=== PATIENT | male | born 1960 | race Caucasian/White ===

== ENCOUNTER 2016-06-30 16:14 | Emergency (ER) | payer BC ==
[~2016-06-30] VITALS: Ht 182.9 cm; Wt 85.0 kg
[~2016-06-30 16:14] MED LIST: FIORIC PO; METO25 PO
[2016-06-30 16:17] VITALS: BP 126/80; PULSE 53; RESP 16; TEMP 98.5; O2SAT 96
[2016-06-30] MEDS ORDERED: ATOR40TA16 PO (16:26)
[2016-06-30] MEDS ORDERED: GABA600T PO (16:26)
--- NOTE | 2016-06-30 17:18 | PD ---
HPI Chief Complaint: Edema Time Seen by Provider: 17:01 Travel History International Travel<30 days: No Contact w/Intl Traveler<30days: No Traveled to known affect area: No History of Present Illness HPI This 55-year-old male says that he has developed edema on both legs over the past week. He is somewhat uncomfortable for him. It seemed to start on the right side first and on the left. About a week and a half ago he started having considerable pain in his left knee. He did not injure himself. He has not had fever. He has to wear a brace of the knee in order to walk. He has a history of colorectal cancer. He has had surgery, chemotherapy and radiation. He just went back to work about 2 weeks ago. 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 He is not aware of any history of liver or kidney disease. He has no history of blood clots. PFSH Past Medical History Arthritis: No Asthma: No Autoimmune Disease: No Heart Rhythm Problems: No Cancer: Yes Cardiovascular Problems: No High Cholesterol: Yes Chemotherapy: Yes Chest Pain: No Congestive Heart Failure: No COPD: No Cerebrovascular Accident: No Diabetes: No Diminished Hearing: No Endocrine: No Gastrointestinal Disorders: Yes GERD: No Genitourinary: No Hiatal Hernia: No Hypertension: Yes Immune Disorder: No Kidney Stones: No Musculoskeletal: No Neurologic: No Psychiatric: No Reproductive: No Respiratory: No Migraines: No Radiation Therapy: Yes Renal Failure: No Seizures: No Sickle Cell Disease: No Sleep Apnea: No Thyroid Disease: Yes Ulcer: No Influenza Vaccination: Yes ?: Not Past Surgical History Abdominal Surgery: Yes (COLON) AICD: No Appendectomy: Yes Arteriovenous Shunt: No Cardiac Surgery: No Ear Surgery: No Endocrine Surgery: No Eye Surgery: No Genitourinary Surgery: No Gynecologic Surgery: No Insulin Pump: No Joint Replacement: No Oral Surgery: No Pacemaker: No Thoracic Surgery: No Tonsillectomy: Yes (as a child) Other Surgery: Yes Social History Alcohol Use: No (DENIES) Tobacco Use: No Substance Use: Yes Allergies-Medications (Allergen,Severity, Reaction): Coded Allergies: No Known Allergies (Verified , 06/30/16) Reported Meds & Prescriptions Reported Meds & Active Scripts Active Reported Atorvastatin (Atorvastatin Calcium) 40 Mg Tab 40 Mg PO HS Gabapentin 600 Mg Tab 600 Mg PO TID Review of Systems General / Constitutional: No: Fever, Chills Eyes: No: Diploplia, Blurred Vision HENT: No: Headaches, Vertigo Cardiovascular: Positive: Edema, No: Chest Pain or Discomfort, Palpitations Respiratory: No: Cough, Shortness of Breath Gastrointestinal: No: Abdominal Pain Genitourinary: No: Urgency, Frequency Musculoskeletal: No: Myalgias, Arthralgias Skin: No Rash, No Itching Neurologic: No: Weakness, Dizziness Hematologic/Lymphatic: No: Easy Bruising Physical Exam Narrative GENERAL: Well-developed male SKIN: Focused skin assessment warm/dry. HEAD: Atraumatic. Normocephalic. EYES: Pupils equal and round. No scleral icterus. No injection or drainage. ENT: No nasal bleeding or discharge. Mucous membranes pink and moist. NECK: Trachea midline. No JVD. CARDIOVASCULAR: Regular rate and rhythm. No murmur appreciated. RESPIRATORY: No accessory muscle use. Clear to auscultation. Breath sounds equal bilaterally. GASTROINTESTINAL: Abdomen soft, non-tender, nondistended. Hepatic and splenic margins not palpable. Multiple scars MUSCULOSKELETAL: There is bilateral pedal edema. Calves are somewhat tender to palpation bilaterally. There is no obvious fluid in the left knee. There is no gross instability. He does complain of some tenderness of the medial aspect of the left knee NEUROLOGICAL: Awake and alert. No obvious cranial nerve deficits. Motor grossly within normal limits. Normal speech. PSYCHIATRIC: Appropriate mood and affect; insight and judgment normal. Data Data Last Documented VS Vital Signs Date Time Temp Pulse Resp B/P Pulse Ox O2 Delivery O2 Flow Rate FiO2 06/30/16 17:47 56 18 131/77 98 Room Air 06/30/16 16:17 98.5 Orders Complete Blood Count With Diff (06/30/16 17:09) Comprehensive Metabolic Panel (06/30/16 17:09) Urinalysis - C+S If Indicated (06/30/16 17:09) Magnesium (Mg) (06/30/16 17:09) Knee, Complete (4vws) (06/30/16 17:09) Us Leg Venous Doppler Bilat (06/30/16 17:09) B-Type Natriuretic Peptide (06/30/16 17:09) Labs Laboratory Tests Test 06/30/16 06/30/16 16:45 17:25 White Blood Count 3.5 TH/MM3 Red Blood Count 3.43 MIL/MM3 Hemoglobin 10.2 GM/DL Hematocrit 31.7 % Mean Corpuscular Volume 92.4 FL Mean Corpuscular Hemoglobin 29.7 PG Mean Corpuscular Hemoglobin 32.2 % Concent Red Cell Distribution Width 12.7 % Platelet Count 188 TH/MM3 Mean Platelet Volume 7.9 FL Neutrophils (%) (Auto) 59.8 % Lymphocytes (%) (Auto) 25.9 % Monocytes (%) (Auto) 9.5 % Eosinophils (%) (Auto) 4.1 % Basophils (%) (Auto) 0.7 % Neutrophils # (Auto) 2.2 TH/MM3 Lymphocytes # (Auto) 0.9 TH/MM3 Monocytes # (Auto) 0.3 TH/MM3 Eosinophils # (Auto) 0.1 TH/MM3 Basophils # (Auto) 0.0 TH/MM3 CBC Comment DIFF FINAL Differential Comment Sodium Level 148 MEQ/L Potassium Level 4.0 MEQ/L Chloride Level 114 MEQ/L Carbon Dioxide Level 26.9 MEQ/L Anion Gap 7 MEQ/L Blood Urea Nitrogen 20 MG/DL Creatinine 0.94 MG/DL Estimat Glomerular Filtration 84 ML/MIN Rate Random Glucose 86 MG/DL Calcium Level 8.3 MG/DL Magnesium Level 2.3 MG/DL Total Bilirubin 0.5 MG/DL Aspartate Amino Transf 22 U/L (AST/SGOT) Alanine Aminotransferase 30 U/L (ALT/SGPT) Alkaline Phosphatase 81 U/L B-Type Natriuretic Peptide 220 PG/ML Total Protein 6.3 GM/DL Albumin 3.3 GM/DL Urine Collection Type CLEAN CATCH Urine Color YELLOW Urine Turbidity CLEAR Urine pH 5.5 Urine Specific [place] 1.025 Urine Protein NEG mg/dL Urine Glucose (UA) NEG mg/dL Urine Ketones NEG mg/dL Urine Occult Blood NEG Urine Nitrite NEG Urine Bilirubin NEG Urine Leukocyte Esterase NEG Urine WBC 0-2 /hpf Urine Squamous Epithelial 0-5 /hpf Cells Urine Amorphous Sediment FEW Microscopic Urinalysis Comment CULT NOT INDICATED Urine Collection Time 1725 MDM Medical Decision Making Medical Screen Exam Complete: Yes Emergency Medical Condition: Yes Medical Record Reviewed: Yes Differential Diagnosis Differential includes CHF, nephrosis, cirrhosis, deconditioning, dvt Narrative Course His hemoglobin is 10.2. Creatinine is 0.9. His albumin is slightly low at 3.3. X-ray of the knee is negative ultrasound of the legs is negative for DVT. I suspect this edema is multifactorial. It may be related to his recent increase in activity and excessive walking. I recommended he keep his legs elevated and will prescribe Lasix. He is to be off work for 2 days. Follow-up with his own medical doctor Diagnosis Primary Impression: Pedal edema Departure Forms: Tests/Procedures, Work Release Enter return to work date: Jul 03, 2016 Additional Instructions: Keep legs elevated Scripts Potassium Chloride ER 10 Meq Tab10 Meq PO DAILY #30 TAB Ref 0 Prov:Onel Lu MD 06/30/16 Furosemide (Lasix)20 Mg Tab20 Mg PO DAILY #30 TAB Ref 0 Prov:Onel Lu MD 06/30/16 Disposition: 01 DISCHARGE HOME Condition: Stable Onel Lu MD Jun 30, 2016 17:18
[2016-06-30 17:19] LABS: AUTOMATED NEUTROPHIL # 2.2 TH/MM3 (1.8-7.7); BASOPHIL % 0.7 % (0.0-2.0); EOSINOPHIL # 0.1 TH/MM3 (0-0.4); EOSINOPHIL % 4.1 % (0.0-4.0); HEMATOCRIT 31.7 % (39.0-51.0); HEMO FLAGS DIFF FINAL; LYMPH % 25.9 % (9.0-44.0); LYMPHOCYTE # 0.9 TH/MM3 (1.0-4.8); MEAN CELL VOLUME 92.4 FL (80.0-100.0); MEAN CORPUSCULAR HEMOGLOBIN 29.7 PG (27.0-34.0); MEAN CORPUSCULAR HGB CONC 32.2 % (32.0-36.0); MONO % 9.5 % (0.0-8.0); NEUT % 59.8 % (16.0-70.0); PLATELET COUNT 188 TH/MM3 (150-450); RED BLOOD COUNT 3.43 MIL/MM3 (4.50-5.90); RED CELL DISTRIBUTION WIDTH 12.7 % (11.6-17.2); WHITE BLOOD COUNT 3.5 TH/MM3 (4.0-11.0)
[2016-06-30 17:27] LABS: CHLORIDE 114 MEQ/L (98-107); SODIUM (NA) 148 MEQ/L (136-145)
[2016-06-30 17:31] LABS: ANION GAP 7 MEQ/L (5-15); BICARBONATE 26.9 MEQ/L (21.0-32.0); BLOOD UREA NITROGEN 20 MG/DL (7-18); MAGNESIUM 2.3 MG/DL (1.5-2.5)
[2016-06-30 17:31] LABS: BLOOD, URINE NEG (NEG); GLUCOSE,URINE NEG (NEG); KETONE, URINE NEG (NEG); NITRITE,URINE NEG (NEG); PH, URINE 5.5 (5.0-8.5)
[2016-06-30 17:32] LABS: METHOD OF COLLECTION CLEAN CATCH; URINE COLOR YELLOW (YELLW/STRAW)
[2016-06-30 17:34] LABS: ALT (GPT) 30 U/L (12-78); AST (GOT) 22 U/L (15-37); GLOMERULAR FILTRATION RATE 84 ML/MIN (>89)
[2016-06-30 17:36] LABS: TOTAL BILIRUBIN ADULT 0.5 MG/DL (0.2-1.0)
[2016-06-30 17:37] LABS: ALKALINE PHOSPHATASE 81 U/L (45-117)
[2016-06-30 17:38] LABS: CULTURE IF INDICATED CULT NOT INDICATED; SQUAMOUS EPITHELIAL CELL URINE 0-5 /hpf (0-5); WBC, URINE 0-2 /hpf (0-5)
[2016-06-30 17:39] LABS: COMMENT (UR) CULT NOT INDICATED; COMMENT2 (UR) MUCOUS PRESENT
[2016-06-30 17:47] VITALS: BP 131/77; PULSE 56; RESP 18; O2SAT 98
--- NOTE | 2016-06-30 18:37 | RADHPO ---
EXAM DATE/TIME: 06/30/2016 17:37 [facility] COMPARISON: No previous studies available for comparison. INDICATIONS : Left knee swelling and pain MEDICAL HISTORY : Carcinoma, colon. Carcinoma, rectal. SURGICAL HISTORY : None. ENCOUNTER: Initial ACUITY: 1 week PAIN SCORE: 10/10 LOCATION: Left knee FINDINGS: Four view examination of the left knee demonstrates no evidence of fracture or dislocation. Bony min eralization is normal. The articular surfaces are intact. The suprapatellar soft tissues have a nor mal configuration. CONCLUSION: 1. Mild osteoarthritis at the left knee. No acute findings. Rodolfo Garcias MD on June 30, 2016 at 18:34 Board Certified Radiologist. This report was verified electronically.
[2016-06-30] MEDS ORDERED: FURO1TAB62 PO (18:38)
[2016-06-30] MEDS ORDERED: POTA10TA2 PO (18:38)
[2016-06-30 18:39] VITALS: BP 123/73; PULSE 50; RESP 18; O2SAT 98
--- NOTE | 2016-06-30 18:44 | RADHPO ---
EXAM DATE/TIME: 06/30/2016 18:04 [facility] COMPARISON: No previous studies available for comparison. INDICATIONS : Bilateral leg swelling. MEDICAL HISTORY : Carcinoma, colon. SURGICAL HISTORY : Colon surgery. Colostomy and reversal. ENCOUNTER: Initial ACUITY: 4 - 6 days PAIN SCORE: 9/10 LOCATION: Bilateral leg. TECHNIQUE: Venous ultrasound of the left and right leg was performed from the inguinal ligament to the proximal calf. Real-time, color Doppler and spectral tracing, compression and augmentation techniques were us ed. FINDINGS: RIGHT LEG: There is normal compressibility of the deep venous system from the inguinal region to the proximal ca lf. No echogenic clot is seen in the lumen of the common femoral, femoral, popliteal, and posterior tibial veins. There is a normal response of the venous system to proximal and distal augmentation an d respiration. LEFT LEG: There is normal compressibility of the deep venous system from the inguinal region to the proximal ca lf. No echogenic clot is seen in the lumen of the common femoral, femoral, popliteal, and posterior tibial veins. There is a normal response of the venous system to proximal and distal augmentation an d respiration. CONCLUSION: Normal examination. Rodolfo Garcias MD on June 30, 2016 at 18:42 Board Certified Radiologist. This report was verified electronically.
== END 2016-06-30 18:56 | disposition home or self-care (01) ==
LOC: PHED 16:14
DX: R60.0 Localized edema (principal); C19 Malignant neoplasm of rectosigmoid junction; M25.562 Pain in left knee; I10 Essential (primary) hypertension; Z79.899 Other long term (current) drug therapy
CPT/HCPCS: 73564; 80053; 81001; 83735; 83880; 85025; 93970

== ENCOUNTER 2016-12-04 20:39 | Emergency (ER) | payer BC ==
[~2016-12-04] VITALS: Ht 182.9 cm; Wt 78.6 kg
[~2016-12-04 20:39] MED LIST changes: +ATOR40TA16 PO; -FIORIC PO; +FURO1TAB62 PO; +GABA600T PO; -METO25 PO; +POTA10TA2 PO
[2016-12-04 20:50] VITALS: BP 121/71; PULSE 93; RESP 18; TEMP 100.5; O2SAT 99
[2016-12-04 21:42] VITALS: BP 121/71; PULSE 93; RESP 18; TEMP 100.5; O2SAT 99
[2016-12-04 21:49] VITALS: BP 147/77; PULSE 85; RESP 18; O2SAT 95
[2016-12-04] MEDS ORDERED: ACETAMINOPHEN 500 MG CPLT PO ONE (22:15)
[2016-12-04] MEDS ORDERED: HYDROmorphone HCL PF 1 MG/ML VIAL IV PUSH ONE ×2 (22:15→23:45)
[2016-12-04] MEDS ORDERED: SODIUM CHLOR 0.9% 1000 ML INJ 1,000 ML IV ONE ×2 (22:15)
[2016-12-04] MEDS ORDERED: ONDANSETRON HCL 4 MG/2 ML VIAL IV PUSH ONE (22:15)
--- NOTE | 2016-12-04 22:16 | PD ---
HPI Chief Complaint: Fever Time Seen by Provider: 21:55 Travel History International Travel<30 days: No Contact w/Intl Traveler<30days: No Traveled to known affect area: No History of Present Illness HPI This 56-year-old male says he has not been feeling well for about a day. He is having a migraine headache. He's been having intermittent fever. He's had some nausea and vomiting. He has not had a sore throat or cough. He's had a fever at home. 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 He has had 2 courses of chemotherapy and has had 4 surgeries. He had a colostomy which was reversed. He is not having any abdominal pain. He has vomited several times at home PFS Past Medical History Arthritis: No Asthma: No Autoimmune Disease: No Heart Rhythm Problems: No Cancer: Yes (Colorectal) Cardiovascular Problems: No High Cholesterol: Yes Chemotherapy: Yes Chest Pain: No Congestive Heart Failure: No COPD: No Cerebrovascular Accident: No Diabetes: No Diminished Hearing: No Endocrine: No Gastrointestinal Disorders: Yes GERD: No Genitourinary: No Hiatal Hernia: No Hypertension: Yes Immune Disorder: No Kidney Stones: No Musculoskeletal: No Neurologic: No Psychiatric: No Reproductive: No Respiratory: No Migraines: No Radiation Therapy: Yes Renal Failure: No Seizures: No Sickle Cell Disease: No Sleep Apnea: No Thyroid Disease: Yes Ulcer: No Past Surgical History Abdominal Surgery: Yes (COLON) AICD: No Appendectomy: Yes Arteriovenous Shunt: No Cardiac Surgery: No Ear Surgery: No Endocrine Surgery: No Eye Surgery: No Genitourinary Surgery: No Gynecologic Surgery: No Insulin Pump: No Joint Replacement: No Oral Surgery: No Pacemaker: No Thoracic Surgery: No Tonsillectomy: Yes (as a child) Other Surgery: Yes (Colorectal disease) Social History Alcohol Use: No (DENIES) Tobacco Use: No Substance Use: No Allergies-Medications (Allergen,Severity, Reaction): Coded Allergies: No Known Allergies (Verified , 06/30/16) Reported Meds & Prescriptions Reported Meds & Active Scripts Active Potassium Chloride ER (Potassium Chloride) 10 Meq Tab 10 Meq PO DAILY Lasix (Furosemide) 20 Mg Tab 20 Mg PO DAILY Reported Atorvastatin (Atorvastatin Calcium) 40 Mg Tab 40 Mg PO HS Gabapentin 600 Mg Tab 600 Mg PO TID Review of Systems General / Constitutional: Positive: Fever, Chills Eyes: No: Diploplia, Blurred Vision HENT: No: Headaches, Vertigo Cardiovascular: No: Chest Pain or Discomfort, Palpitations Respiratory: No: Cough, Shortness of Breath Gastrointestinal: Positive: Nausea, Vomiting, Loss of Appetite, No: Abdominal Pain Genitourinary: No: Urgency, Nocturia Musculoskeletal: No: Myalgias, Arthralgias Skin: No Rash, No Itching Neurologic: No: Syncope Endocrine: No: Heat Intolerance Hematologic/Lymphatic: No: Easy Bruising Physical Exam Narrative GENERAL: Well-developed male SKIN: Focused skin assessment warm/dry. HEAD: Atraumatic. Normocephalic. EYES: Pupils equal and round. No scleral icterus. No injection or drainage. ENT: No nasal bleeding or discharge. Mucous membranes pink and moist. NECK: Trachea midline. No JVD. His neck is supple CARDIOVASCULAR: Regular rate and rhythm. No murmur appreciated. RESPIRATORY: No accessory muscle use. Clear to auscultation. Breath sounds equal bilaterally. GASTROINTESTINAL: Abdomen soft, non-tender, nondistended. Hepatic and splenic margins not palpable. MUSCULOSKELETAL: No obvious deformities. No clubbing. No cyanosis. No edema. NEUROLOGICAL: Awake and alert. No obvious cranial nerve deficits. Motor grossly within normal limits. Normal speech. PSYCHIATRIC: Appropriate mood and affect; insight and judgment normal. Data Data Last Documented VS Vital Signs Date Time Temp Pulse Resp B/P (MAP) Pulse Ox O2 Delivery O2 Flow Rate FiO2 12/04/16 21:49 85 18 147/77 (100) 95 Room Air 12/04/16 21:42 100.5 Orders Orders Complete Blood Count With Diff (12/04/16 22:03) Comprehensive Metabolic Panel (12/04/16 22:03) Blood Culture (12/04/16 22:03) Urinalysis - C+S If Indicated (12/04/16 22:03) Influenzae A/B Antigen (12/04/16 22:03) Sodium Chlor 0.9% 1000 Ml Inj (Ns 1000 M (12/04/16 22:15) Sodium Chlor 0.9% 1000 Ml Inj (Ns 1000 M (12/04/16 22:15) Ondansetron Inj (Zofran Inj) (12/04/16 22:15) Hydromorphone Pf Inj (Dilaudid Pf Inj) (12/04/16 22:15) Acetaminophen (Tylenol) (12/04/16 22:15) Urine Culture (12/04/16 22:20) Ceftriaxone Inj (Rocephin Inj) (12/04/16 23:30) Labs Laboratory Tests Test 12/04/16 22:20 White Blood Count 13.2 TH/MM3 Red Blood Count 4.38 MIL/MM3 Hemoglobin 13.5 GM/DL Hematocrit 39.3 % Mean Corpuscular Volume 89.6 FL Mean Corpuscular Hemoglobin 30.9 PG Mean Corpuscular Hemoglobin Concent 34.5 % Red Cell Distribution Width 14.0 % Platelet Count 143 TH/MM3 Mean Platelet Volume 7.7 FL Neutrophils (%) (Auto) 85.3 % Lymphocytes (%) (Auto) 4.6 % Monocytes (%) (Auto) 9.1 % Eosinophils (%) (Auto) 0.0 % Basophils (%) (Auto) 1.0 % Neutrophils # (Auto) 11.3 TH/MM3 Lymphocytes # (Auto) 0.6 TH/MM3 Monocytes # (Auto) 1.2 TH/MM3 Eosinophils # (Auto) 0.0 TH/MM3 Basophils # (Auto) 0.1 TH/MM3 CBC Comment DIFF FINAL Differential Comment Urine Color YELLOW Urine Turbidity CLOUDY Urine pH 6.0 Urine Specific [place] 1.025 Urine Protein 100 mg/dL Urine Glucose (UA) NEG mg/dL Urine Ketones 15 mg/dL Urine Occult Blood SMALL Urine Nitrite POS Urine Bilirubin NEG Urine Leukocyte Esterase MOD Urine RBC 15-19 /hpf Urine WBC INNUM /hpf Urine Squamous Epithelial Cells 0-5 /hpf Urine Bacteria MANY /hpf Microscopic Urinalysis Comment CULTURE INDICATED Blood Urea Nitrogen 19 MG/DL Creatinine 1.20 MG/DL Random Glucose 131 MG/DL Total Protein 8.1 GM/DL Albumin 3.6 GM/DL Calcium Level 8.9 MG/DL Alkaline Phosphatase 89 U/L Aspartate Amino Transf (AST/SGOT) 21 U/L Alanine Aminotransferase (ALT/SGPT) 17 U/L Total Bilirubin 1.1 MG/DL Sodium Level 133 MEQ/L Potassium Level 3.4 MEQ/L Chloride Level 98 MEQ/L Carbon Dioxide Level 25.4 MEQ/L Anion Gap 10 MEQ/L Estimat Glomerular Filtration Rate 63 ML/MIN [facility] Medical Decision Making Medical Screen Exam Complete: Yes Emergency Medical Condition: Yes Medical Record Reviewed: Yes Differential Diagnosis Differential includes viral syndrome, influenza, UTI Narrative Course Hemoglobin is 13. White count is 13. Urinalysis does show innumerable white cells consistent with urinary tract infection. He will be released with prescriptions for Bactrim. Lortab and Zofran Diagnosis Primary Impression: Urinary tract infection Scripts Sulfamethoxazole-Trimethoprim (Bactrim DS) 800-160 Mg Tab 1 TAB PO BID for Infection, #20 TAB 0 Refills Prov: Onel Lu MD 12/04/16 Oxycodone-Acetaminophen (Percocet) 7.5-325 mg Tab 1 TAB PO Q4H Y for PAIN, #20 TAB 0 Refills Prov: Onel Lu MD 12/04/16 Ondansetron Odt (Zofran Odt) 4 Mg Tab 4 MG SL Q6HR Y for Nausea/Vomiting, #10 TAB 0 Refills Prov: Onel Lu MD 12/04/16 Disposition: 01 DISCHARGE HOME Condition: Stable Onel Lu MD Dec 04, 2016 22:16
[2016-12-04 22:33] LABS: AUTOMATED NEUTROPHIL # 11.3 TH/MM3 (1.8-7.7); BASOPHIL # 0.1 TH/MM3 (0-0.2); HEMATOCRIT 39.3 % (39.0-51.0); LYMPH % 4.6 % (9.0-44.0); LYMPHOCYTE # 0.6 TH/MM3 (1.0-4.8); MEAN CELL VOLUME 89.6 FL (80.0-100.0); MEAN CORPUSCULAR HEMOGLOBIN 30.9 PG (27.0-34.0); MEAN CORPUSCULAR HGB CONC 34.5 % (32.0-36.0); MONO % 9.1 % (0.0-8.0); NEUT % 85.3 % (16.0-70.0); PLATELET COUNT 143 TH/MM3 (150-450); RED BLOOD COUNT 4.38 MIL/MM3 (4.50-5.90); WHITE BLOOD COUNT 13.2 TH/MM3 (4.0-11.0)
[2016-12-04 22:38] LABS: BLOOD, URINE SMALL (NEG); GLUCOSE,URINE NEG (NEG); HEMO FLAGS DIFF FINAL; KETONE, URINE 15 mg/dL (NEG); NITRITE,URINE POS (NEG)
[2016-12-04 22:41] LABS: CHLORIDE 98 MEQ/L (98-107); POTASSIUM 3.4 MEQ/L (3.5-5.1); SODIUM (NA) 133 MEQ/L (136-145); URINE COLOR YELLOW (YELLW/STRAW)
[2016-12-04 22:42] LABS: BACTERIA, URINE MANY /hpf; COMMENT (UR) CULTURE INDICATED; CULTURE IF INDICATED CULTURE INDICATED; RBC, URINE 15-19 /hpf (0-3); SQUAMOUS EPITHELIAL CELL URINE 0-5 /hpf (0-5); WBC, URINE INNUM /hpf (0-5)
[2016-12-04 22:45] LABS: ANION GAP 10 MEQ/L (5-15); BICARBONATE 25.4 MEQ/L (21.0-32.0); BLOOD UREA NITROGEN 19 MG/DL (7-18)
[2016-12-04 22:48] LABS: ALT (GPT) 17 U/L (12-78); AST (GOT) 21 U/L (15-37); GLOMERULAR FILTRATION RATE 63 ML/MIN (>89)
[2016-12-04 22:49] LABS: TOTAL BILIRUBIN ADULT 1.1 MG/DL (0.2-1.0)
[2016-12-04 22:51] LABS: ALKALINE PHOSPHATASE 89 U/L (45-117)
[2016-12-04 23:20] VITALS: BP 129/72; PULSE 72; RESP 18; TEMP 99.4; O2SAT 97
[2016-12-04] MEDS ORDERED: ZOFR4TAB3 SL (23:22)
[2016-12-04] MEDS ORDERED: PERC7.5T13 PO (23:22)
[2016-12-04] MEDS ORDERED: BACT800T5 PO (23:22)
[2016-12-04] MEDS ORDERED: cefTRIAXone INJ 1,000 MG in SODIUM CHLORIDE 0.9% INJ 100 ML IV ONE (23:30)
[2016-12-05 00:45] VITALS: BP 113/71
[2016-12-05 00:51] VITALS: RESP 16
[2016-12-06] MEDS ORDERED: LOPE-1 PO (12:24)
== END 2016-12-05 01:00 | disposition home or self-care (01) ==
LOC: PHED 20:39
DX: N39.0 Urinary tract infection, site not specified (principal); R51 Headache; R50.9 Fever, unspecified; R11.2 Nausea with vomiting, unspecified; B96.20 Unspecified Escherichia coli [E. coli] as the cause of diseases classified elsewhere; I10 Essential (primary) hypertension; E07.9 Disorder of thyroid, unspecified; E78.00 Pure hypercholesterolemia, unspecified; Z85.038 Personal history of other malignant neoplasm of large intestine; Z87.19 Personal history of other diseases of the digestive system
CPT/HCPCS: 80053; 81001; 85025; 87040; 87077; 87086; 87186; 87205; 87804; 96361; 96365; 96375; 96376; 99284; J0696; J1170; J2405; J7030

== ENCOUNTER 2016-12-05 17:09 | Inpatient (IN) | payer BC ==
[~2016-12-05] VITALS: Ht 182.9 cm; Wt 80.1 kg
[~2016-12-05 17:09] MED LIST changes: +BACT800T5 PO; -FURO1TAB62 PO; +PERC7.5T13 PO; -POTA10TA2 PO; +ZOFR4TAB3 SL
[2016-12-05 17:11] VITALS: BP 118/68; PULSE 87; RESP 20; TEMP 100.5; O2SAT 94
[2016-12-05] MEDS ORDERED: PIPERACIL-TAZO 3.375 GM PREMIX 50 ML IV ONE (17:30)
[2016-12-05] MEDS ORDERED: ONDANSETRON HCL 4 MG/2 ML VIAL IV PUSH ONE (17:30)
--- NOTE | 2016-12-05 17:36 | PD ---
HPI Chief Complaint: Abnormal Results Time Seen by Provider: 17:18 Travel History International Travel<30 days: No Contact w/Intl Traveler<30days: No Traveled to known affect area: No History of Present Illness HPI 56yo M with PMH of rectal CA s/p chemo, cancer free for 1 year was called back today because of positive blood cultures. Pt has not been feeling well for 2 days and was seen at [facility] yesterday and diagnosed with UTI and discharge with bactrim. Pt states that he has been vomiting and still feels nauseous, last vomit was this morning. Also has been having fever, and last took ibuprofen at 2:30pm. Pt denies any chest pain, sob, abdominal pain, dysuria, focal weakness or numbness. Pt's urine culture and anareobic blood culture grew gram negative rosaura. PFSH Past Medical History Arthritis: No Asthma: No Autoimmune Disease: No Heart Rhythm Problems: No Cancer: Yes (Colorectal) Cardiovascular Problems: No High Cholesterol: Yes Chemotherapy: Yes Chest Pain: No Congestive Heart Failure: No COPD: No Cerebrovascular Accident: No Diabetes: No Diminished Hearing: No Endocrine: No Gastrointestinal Disorders: Yes GERD: No Genitourinary: No Hiatal Hernia: No Hypertension: Yes Immune Disorder: No Kidney Stones: No Musculoskeletal: No Neurologic: No Psychiatric: No Reproductive: No Respiratory: No Migraines: No Radiation Therapy: Yes Renal Failure: No Seizures: No Sickle Cell Disease: No Sleep Apnea: No Thyroid Disease: Yes Ulcer: No Past Surgical History Abdominal Surgery: Yes (COLON) AICD: No Appendectomy: Yes Arteriovenous Shunt: No Cardiac Surgery: No Ear Surgery: No Endocrine Surgery: No Eye Surgery: No Genitourinary Surgery: No Gynecologic Surgery: No Insulin Pump: No Joint Replacement: No Oral Surgery: No Pacemaker: No Thoracic Surgery: No Tonsillectomy: Yes (as a child) Other Surgery: Yes (Colorectal disease) Social History Alcohol Use: No (DENIES) Tobacco Use: No Substance Use: No Allergies-Medications (Allergen,Severity, Reaction): Coded Allergies: No Known Allergies (Verified , 12/05/16) Reported Meds & Prescriptions Reported Meds & Active Scripts Active Bactrim DS (Sulfamethoxazole-Trimethoprim) 800-160 Mg Tab 1 Tab PO BID Percocet (Oxycodone-Acetaminophen) 7.5-325 mg Tab 1 Tab PO Q4H PRN Zofran Odt (Ondansetron Odt) 4 Mg Tab 4 Mg SL Q6HR PRN Reported Atorvastatin (Atorvastatin Calcium) 40 Mg Tab 40 Mg PO HS Gabapentin 600 Mg Tab 600 Mg PO BID Review of Systems Except as stated in HPI: all other systems reviewed are Neg Physical Exam Narrative GENERAL: 56yo M in mild distress. SKIN: Diaphoretic. HEAD: Atraumatic. Normocephalic. EYES: Pupils equal and round. No scleral icterus. No injection or drainage. ENT: No nasal bleeding or discharge. Mucous membranes pink and moist. NECK: Trachea midline. No JVD. CARDIOVASCULAR: Regular rate and rhythm. No murmur appreciated. RESPIRATORY: No accessory muscle use. Clear to auscultation. Breath sounds equal bilaterally. GASTROINTESTINAL: Abdomen soft, non-tender, nondistended. No rebound tenderness or guarding. MUSCULOSKELETAL: No obvious deformities. No clubbing. No cyanosis. No edema. NEUROLOGICAL: Awake and alert. No obvious cranial nerve deficits. Motor grossly within normal limits. Normal speech. PSYCHIATRIC: Appropriate mood and affect; insight and judgment normal. Data Data Last Documented VS Vital Signs Date Time Temp Pulse Resp B/P (MAP) Pulse Ox O2 Delivery O2 Flow Rate FiO2 12/05/16 18:45 74 18 124/60 (81) 98 Room Air 12/05/16 17:11 100.5 Orders Orders Blood Culture (12/05/16 17:29) Complete Blood Count With Diff (12/05/16 17:29) Basic Metabolic Panel (Bmp) (12/05/16 17:29) Lactic Acid Sepsis Protocol (12/05/16 17:29) Prothrombin Time / Inr (Pt) (12/05/16 17:29) Act Partial Throm Time (Ptt) (12/05/16 17:29) Piperacil-Tazo 3.375 Gm Premix (Zosyn 3. (12/05/16 17:30) Ondansetron Inj (Zofran Inj) (12/05/16 17:30) Acetaminophen (Tylenol) (12/05/16 17:45) Potassium Chloride (Kcl) (12/05/16 19:00) Admit Order (Ed Use Only) (12/05/16 19:20) Labs Laboratory Tests Test 12/05/16 17:50 White Blood Count 11.7 TH/MM3 Red Blood Count 3.69 MIL/MM3 Hemoglobin 11.7 GM/DL Hematocrit 34.4 % Mean Corpuscular Volume 93.3 FL Mean Corpuscular Hemoglobin 31.6 PG Mean Corpuscular Hemoglobin Concent 33.9 % Red Cell Distribution Width 14.4 % Platelet Count 131 TH/MM3 Mean Platelet Volume 8.1 FL Neutrophils (%) (Auto) 82.8 % Lymphocytes (%) (Auto) 6.8 % Monocytes (%) (Auto) 9.7 % Eosinophils (%) (Auto) 0.4 % Basophils (%) (Auto) 0.3 % Neutrophils # (Auto) 9.8 TH/MM3 Lymphocytes # (Auto) 0.8 TH/MM3 Monocytes # (Auto) 1.1 TH/MM3 Eosinophils # (Auto) 0.0 TH/MM3 Basophils # (Auto) 0.0 TH/MM3 CBC Comment AUTO DIFF Prothrombin Time 11.0 SEC Prothromb Time International Ratio 1.0 RATIO Activated Partial Thromboplast Time 32.0 SEC Blood Urea Nitrogen 16 MG/DL Creatinine 0.99 MG/DL Random Glucose 106 MG/DL Calcium Level 8.5 MG/DL Sodium Level 137 MEQ/L Potassium Level 3.3 MEQ/L Chloride Level 103 MEQ/L Carbon Dioxide Level 24.1 MEQ/L Anion Gap 10 MEQ/L Estimat Glomerular Filtration Rate 79 ML/MIN Lactic Acid Level 1.8 mmol/L MDM Medical Decision Making Medical Screen Exam Complete: Yes Emergency Medical Condition: Yes Differential Diagnosis Bacteremic vs. sepsis Narrative Course 56yo M was called back because blood culture grew gram negative rosaura. Pt is still not feeling well, febrile, diaphoretic, nauseous and vomiting. Will redraw blood cultures, obtain basic labs for sepsis work up and give IV zosyn. Pt initially febrile at 100.5F and given acetaminophen. Labs reviewed, mild leukocytosis at 11.7. Thrombocytopenic at 131. Lactic acid normal at 1.8. K: 3.3, replaced orally. Discussed with Dr. Templeton and accepted to her service for bacteremia. Diagnosis Primary Impression: Bacteremia Admitting Information Admitting Physician Requests: Admit Kymberly Bernard Dec 05, 2016 17:36
[2016-12-05] MEDS ORDERED: ACETAMINOPHEN 325 MG TAB PO ONE (17:45)
[2016-12-05 18:20] LABS: AUTOMATED NEUTROPHIL # 9.8 TH/MM3 (1.8-7.7); BASOPHIL % 0.3 % (0.0-2.0); EOSINOPHIL % 0.4 % (0.0-4.0); HEMATOCRIT 34.4 % (39.0-51.0); LYMPH % 6.8 % (9.0-44.0); LYMPHOCYTE # 0.8 TH/MM3 (1.0-4.8); MEAN CELL VOLUME 93.3 FL (80.0-100.0); MEAN CORPUSCULAR HEMOGLOBIN 31.6 PG (27.0-34.0); MEAN CORPUSCULAR HGB CONC 33.9 % (32.0-36.0); MONO % 9.7 % (0.0-8.0); NEUT % 82.8 % (16.0-70.0); PLATELET COUNT 131 TH/MM3 (150-450); RED BLOOD COUNT 3.69 MIL/MM3 (4.50-5.90); RED CELL DISTRIBUTION WIDTH 14.4 % (11.6-17.2); WHITE BLOOD COUNT 11.7 TH/MM3 (4.0-11.0)
[2016-12-05 18:24] LABS: HEMO FLAGS AUTO DIFF
[2016-12-05 18:45] VITALS: BP 124/60; PULSE 74; RESP 18; O2SAT 98
[2016-12-05 18:50] LABS: POTASSIUM 3.3 MEQ/L (3.5-5.1)
[2016-12-05 18:53] LABS: BICARBONATE 24.1 MEQ/L (21.0-32.0)
[2016-12-05] MEDS ORDERED: POTASSIUM CHLORIDE 20 MEQ CONTROLLED RELEASE TAB PO ONE (19:00)
[2016-12-05 19:36] LABS: SCAN/DIFF AUTO DIFF CONFIRMED
[2016-12-05 20:20] VITALS: TEMP 98.8
[2016-12-05] MEDS ORDERED: NALOXONE HCL 0.4 MG/ML AMP IV PUSH PRN (20:30)
[2016-12-05] MEDS ORDERED: SODIUM CHLORIDE 0.9% FLUSH 10 ML FLUSH IV FLUSH PRN (20:30)
[2016-12-05 20:51] VITALS: BP 96/56; PULSE 66; RESP 16; O2SAT 96
[2016-12-05] MEDS: SODIUM CHLORIDE 0.9% FLUSH 10 ML FLUSH IV FLUSH SCH (21:14)
[2016-12-05] MEDS ORDERED: IBUPROFEN 800 MG TAB PO SCH (23:48)
[2016-12-06] VITALS (8 sets, daily range): BP systolic 101–124; BP diastolic 67–81; PULSE 54–68; RESP 16–18; TEMP 96–99.5; O2SAT 95–98
[2016-12-06] MEDS: PIPERACIL-TAZO 4.5 GM PREMIX 100 ML IV SCH ×3 (06:00→13:02)
[2016-12-06 07:08] LABS: AUTOMATED NEUTROPHIL # 6.8 TH/MM3 (1.8-7.7); BASOPHIL % 0.3 % (0.0-2.0); EOSINOPHIL # 0.1 TH/MM3 (0-0.4); EOSINOPHIL % 1.3 % (0.0-4.0); HEMATOCRIT 34.3 % (39.0-51.0); LYMPH % 9.5 % (9.0-44.0); LYMPHOCYTE # 0.8 TH/MM3 (1.0-4.8); MEAN CELL VOLUME 94.2 FL (80.0-100.0); MEAN CORPUSCULAR HEMOGLOBIN 31.1 PG (27.0-34.0); MONO % 10.3 % (0.0-8.0); NEUT % 78.6 % (16.0-70.0); PLATELET COUNT 126 TH/MM3 (150-450); RED BLOOD COUNT 3.65 MIL/MM3 (4.50-5.90); RED CELL DISTRIBUTION WIDTH 14.3 % (11.6-17.2); WHITE BLOOD COUNT 8.6 TH/MM3 (4.0-11.0)
[2016-12-06 07:14] LABS: POTASSIUM 4.1 MEQ/L (3.5-5.1)
[2016-12-06 07:17] LABS: HEMO FLAGS DIFF FINAL
[2016-12-06 07:20] LABS: BICARBONATE 26.8 MEQ/L (21.0-32.0)
[2016-12-06] MEDS: SODIUM CHLORIDE 0.9% FLUSH 10 ML FLUSH IV FLUSH SCH ×2 (08:00→20:42)
[2016-12-06] MEDS ORDERED: LOPE-1 PO (12:24)
[2016-12-06] MEDS ORDERED: LOPERAMIDE HCL 2 MG CAP PO PRN ×2 (13:15→14:15)
[2016-12-06] MEDS ORDERED: IBUPROFEN 600 MG TAB PO ONE (13:30)
[2016-12-06] MEDS ORDERED: ALUMINUM/MAGNESIUM/SIMETH 30 ML CUP PO PRN (14:15)
[2016-12-06] MEDS ORDERED: ACETAMINOPHEN 325 MG TAB PO PRN (14:15)
[2016-12-06] MEDS ORDERED: ONDANSETRON HCL 4 MG/2 ML VIAL IV PRN (14:15)
[2016-12-06] MEDS ORDERED: TEMAZEPAM 15 MG CAP PO PRN (14:15)
[2016-12-06] MEDS: ACETAMINOPHEN/HYDROcodone 325 MG/5 MG TAB PO PRN (15:28)
[2016-12-06] MEDS ORDERED: SODIUM CHLOR 0.9% 1000 ML INJ 1,000 ML IV SCH (16:00)
--- NOTE | 2016-12-06 17:08 | HHI.HP ---
HPI Service [facility] Primary Care Physician Khari Jama MD Admission Diagnosis Bacteremia Diagnoses: (1) Bacteremia Diagnosis: Principal (2) Urinary tract infection Diagnosis: Principal Chief Complaint: Patient was called and because of positive blood cultures Travel History International Travel<30 Days: No Contact w/Intl Traveler <30 Da: No Traveled to Known Affected Are: No History of Present Illness Written by Jr Nobles, acting as scribe for Dr. Canales on 12/06/16 at 16:57. 56 year-old male with known history of rectal cancer, hyperlipidemia who presented to the hospital at the request of the ER because of positive blood cultures. Patient states that his symptoms started approximately 3 weeks ago with urinary frequency with decreased urinary output. He thought maybe his prostate so he was planning on arranging an appointment with a urologist. However Friday he started not feeling well with generalized weakness, he started developing chills where he got into a swimming pool and he got out because he was severely cold. He went to bed at 7 PM that day and did not feel well he had fever which he took Tylenol, he had severe headache. Started developing some nausea vomiting between 9 PM and 9:30 that day. Patient got the next day and he did go over and visit his parents but still did not feel well. He did go to the emergency department for evaluation. Patient was evaluated and found to have urinary tract infection was started on Bactrim. Patient went home and took medication approximately 1 dose. Patient was called by the hospital because certainly his blood cultures that were taken in emergency department did become positive with gram-negative rosaura. Patient return the hospital and he has been started on antibiotic to include Zosyn. Patient indicates that he had does have history of bacteremia secondary to urinary tract infection 10-12 years ago.. He does not indicate how he had the source before. Patient does have low-grade fever this time. We'll need to await further cultures for final delineation for the patient Review of Systems Constitutional: COMPLAINS OF: Fever, Chills Genitourinary: COMPLAINS OF: Urinary frequency Neurologic: COMPLAINS OF: Headache Except as stated in HPI: all other systems reviewed are Neg Past Family Social History Past Medical History Hyperlipidemia Chemotherapy-induced neuropathy History of colorectal cancer Past Surgical History Colostomy with reversal Appendectomy Reported Medications Reported Meds & Active Scripts Active Bactrim DS (Sulfamethoxazole-Trimethoprim) 800-160 Mg Tab 1 Tab PO BID Percocet (Oxycodone-Acetaminophen) 7.5-325 mg Tab 1 Tab PO Q4H PRN Zofran Odt (Ondansetron Odt) 4 Mg Tab 4 Mg SL Q6HR PRN Reported Imodium A-D (Loperamide HCl) 2 Mg Capsule 1-2 Tab PO Q4HR PRN One capsule after each loose stool. Not to exceed 8 tablets per day. Atorvastatin (Atorvastatin Calcium) 40 Mg Tab 40 Mg PO HS Gabapentin 600 Mg Tab 600 Mg PO BID Allergies: Coded Allergies: No Known Allergies (Verified , 12/05/16) Family History Reviewed is significant for father alive at age 80 with coronary artery disease requiring bypass surgery, other alive at 78 years old in good health. Social History Patient quit smoking 1 year ago, prior to that he smoked a half pack a cigarettes a day since he was 13 years old. Denies any alcohol or illicit drugs Physical Exam Vital Signs Vital Signs Date Time Temp Pulse Resp B/P (MAP) Pulse Ox O2 Delivery O2 Flow Rate FiO2 12/06/16 16:00 98.8 68 16 115/71 (86) 97 12/06/16 14:37 16 12/06/16 13:40 99.5 12/06/16 12:00 97.3 65 16 104/68 (80) 95 12/06/16 08:00 96.0 54 16 101/67 (78) 97 12/06/16 04:56 55 12/06/16 04:00 98.9 62 18 124/78 (93) 98 12/06/16 00:00 99.1 64 18 117/74 (88) 96 12/05/16 20:51 66 16 96/56 (69) 96 Room Air 12/05/16 20:20 98.8 12/05/16 18:45 74 18 124/60 (81) 98 Room Air 12/05/16 17:30 Room Air 12/05/16 17:11 100.5 87 20 118/68 (85) 94 Physical Exam GENERAL: Well-developed, well-nourished, in no acute distress. alert and orientated HEENT: Head is normocephalic without any lesions or masses noted. Facial features are symmetric. Eyes: Pupils equal round reactive to light. Extraocular muscles are intact. Conjunctivae were clear. Oropharyngeal: Pharynx without any erythema edema. Tongue is midline without deviation. Buccal mucosa is moist without any masses or lesions NECK: Supple without any masses. Trachea midline no deviation. No JVD, no bruits are appreciated CARDIAC: Regular rhythm, regular rate. S1/S2 are heard. No murmurs gallops or rubs. LUNGS: Clear to auscultation bilaterally. No wheeze, rhonchi or rales. No use of accessory muscles on inspiration or expiration. ABDOMEN: Soft, nontender. Nondistended. Bowel sounds heard in all 4 quadrants. No organomegaly or masses. Negative rebound, negative guarding EXTREMITIES: No edema, pulses are equal bilaterally. No cyanosis or clubbing NEUROLOGY: Mood and affect appear appropriate. Cranial nerves II through XII grossly intact. Muscle strength 5/5 in upper and lower extremities bilaterally. Deep tendon reflexes are 2+ in upper and lower extremities bilaterally. Laboratory Laboratory Tests Test 12/05/16 17:50 12/06/16 05:25 White Blood Count 11.7 8.6 Red Blood Count 3.69 3.65 Hemoglobin 11.7 11.4 Hematocrit 34.4 34.3 Mean Corpuscular Volume 93.3 94.2 Mean Corpuscular Hemoglobin 31.6 31.1 Mean Corpuscular Hemoglobin Concent 33.9 33.0 Red Cell Distribution Width 14.4 14.3 Platelet Count 131 126 Mean Platelet Volume 8.1 8.7 Neutrophils (%) (Auto) 82.8 78.6 Lymphocytes (%) (Auto) 6.8 9.5 Monocytes (%) (Auto) 9.7 10.3 Eosinophils (%) (Auto) 0.4 1.3 Basophils (%) (Auto) 0.3 0.3 Neutrophils # (Auto) 9.8 6.8 Lymphocytes # (Auto) 0.8 0.8 Monocytes # (Auto) 1.1 0.9 Eosinophils # (Auto) 0.0 0.1 Basophils # (Auto) 0.0 0.0 CBC Comment AUTO DIFF DIFF FINAL Differential Comment AUTO DIFF CONFIRMED Prothrombin Time 11.0 Prothromb Time International Ratio 1.0 Activated Partial Thromboplast Time 32.0 Blood Urea Nitrogen 16 20 Creatinine 0.99 1.10 Random Glucose 106 96 Calcium Level 8.5 8.7 Sodium Level 137 137 Potassium Level 3.3 4.1 Chloride Level 103 102 Carbon Dioxide Level 24.1 26.8 Anion Gap 10 8 Estimat Glomerular Filtration Rate 79 70 Lactic Acid Level 1.8 Date/Time Source Procedure Growth Status 12/05/16 17:05 Blood Peripheral Aerobic Blood Culture - Preliminary NO GROWTH IN 1 DAY Resulted 12/05/16 17:05 Blood Peripheral Anaerobic Blood Culture - Preliminary NO GROWTH IN 1 DAY Resulted Result Diagram: 12/06/1652412/06/16524 Caprini VTE Risk Assessment Caprini VTE Risk Assessment: Mod/High Risk (score >= 2) Caprini Risk Assessment Model Point Value = 1 Point Value = 2 Point Value = 3 Point Value = 5 Age 41-60 Minor surgery BMI > 25 kg/m2 Swollen legs Varicose veins or History of unexplained or recurrent spontaneous Oral contraceptives or hormone replacement Sepsis (< 1 month) Serious lung disease, including pneumonia (< 1 month) Abnormal pulmonary function Acute myocardial infarction Congestive heart failure (< 1 month) History of inflammatory bowel disease Medical patient at bed rest Age 61-74 Arthroscopic surgery Major open surgery (> 45 min) Laparoscopic surgery (> 45 min) Malignancy Confined to bed (> 72 hours) Immobilizing plaster cast Central venous access Age >= 75 History of VTE Family history of VTE Factor V Leiden Prothrombin [id number] Lupus anticoagulant Anticardiolipin antibodies Elevated serum homocysteine Heparin-induced thrombocytopenia Other congenital or acquired thrombophilia Stroke (< 1 month) Elective arthroplasty Hip, pelvis, or leg fracture Acute spinal cord injury (< 1 month) Prophylaxis Regimen Total Risk Factor Score Risk Level Prophylaxis Regimen 0-1 Low Early ambulation 2 Moderate Order ONE of the following: *Sequential Compression Device (SCD) *Heparin 5000 units SQ BID 3-4 Higher Order ONE of the following medications: *Heparin 5000 units SQ TID *Enoxaparin/Lovenox 40 mg SQ daily (WT < 150 kg, CrCl > 30 mL/min) *Enoxaparin/Lovenox 30 mg SQ daily (WT < 150 kg, CrCl > 10-29 mL/min) *Enoxaparin/Lovenox 30 mg SQ BID (WT < 150 kg, CrCl > 30 mL/min) AND/OR *Sequential Compression Device (SCD) 5 or more Highest Order ONE of the following medications: *Heparin 5000 units SQ TID (Preferred with Epidurals) *Enoxaparin/Lovenox 40 mg SQ daily (WT < 150 kg, CrCl > 30 mL/min) *Enoxaparin/Lovenox 30 mg SQ daily (WT < 150 kg, CrCl > 10-29 mL/min) *Enoxaparin/Lovenox 30 mg SQ BID (WT < 150 kg, CrCl > 30 mL/min) AND *Sequential Compression Device (SCD) Assessment and Plan Assessment and Plan Bacteremia likely secondary to urinary tract infection, possible prostatitis Patient was continued on Zosyn. Urine culture does show Escherichia coli pansensitive Awaiting blood culture final sensitivities Repeat blood cultures are negative for 1 day Discussed case with infectious disease who recommended if blood cultures/ urine culture are same bacteria, consider Cipro 500 mg twice daily for 4 weeks recommend follow-up in outpatient setting with urology Azotemia, mild Could be secondary to underlying infection versus chronic diarrhea Continue IV fluids Monitor renal function History of colorectal cancer Patient with intermittent chronic diarrhea Resume Imodium DVT prevention Sequential compression devices This note was transcribed by stevie Nobles. I, Dr. Jimenez French personally performed the history, physical exam, and medical decision making; and confirmed the accuracy of the information in the transcribed note. Authenticated by Dr. Jimenez French on 12/06/16 at 17:12. Physician Certification 2 Midnight Certification Type: Admission for Inpatient Services Order for Inpatient Services The services are ordered in accordance with Medicare regulations or non- Medicare payer requirements, as applicable. In the case of services not specified as inpatient-only, they are appropriately provided as inpatient services in accordance with the 2-midnight benchmark. Estimated LOS (days): 2 days is the estimated time the patient will need to remain in the hospital, assuming treatment plan goals are met and no additional complications. Post-Hospital Plan: Jr Hays Dec 06, 2016 17:08 Jimenez Tobar MD Dec 06, 2016 17:58
[2016-12-06] MEDS: CIPROFLOXACIN 500 MG TAB PO SCH (20:41)
[2016-12-06] MEDS: GABAPENTIN 300 MG CAP PO SCH (20:42)
[2016-12-06] MEDS ORDERED: ATORVASTATIN 40 MG TAB PO SCH (21:00)
[2016-12-07] MEDS: ACETAMINOPHEN/HYDROcodone 325 MG/5 MG TAB PO PRN ×2 (00:56→08:21)
[2016-12-07 02:06] VITALS: BP 151/96; PULSE 66; RESP 16; TEMP 97.6; O2SAT 98
[2016-12-07 04:16] VITALS: RESP 18
[2016-12-07 07:09] LABS: AUTOMATED NEUTROPHIL # 5.3 TH/MM3 (1.8-7.7); BASOPHIL % 0.2 % (0.0-2.0); EOSINOPHIL # 0.1 TH/MM3 (0-0.4); EOSINOPHIL % 1.4 % (0.0-4.0); HEMATOCRIT 35.2 % (39.0-51.0); HEMO FLAGS DIFF FINAL; LYMPH % 13.7 % (9.0-44.0); MEAN CELL VOLUME 92.6 FL (80.0-100.0); MEAN CORPUSCULAR HEMOGLOBIN 31.2 PG (27.0-34.0); MEAN CORPUSCULAR HGB CONC 33.7 % (32.0-36.0); MONO % 10.4 % (0.0-8.0); NEUT % 74.3 % (16.0-70.0); PLATELET COUNT 154 TH/MM3 (150-450); RED CELL DISTRIBUTION WIDTH 14.5 % (11.6-17.2); WHITE BLOOD COUNT 7.1 TH/MM3 (4.0-11.0)
[2016-12-07 07:17] LABS: CHLORIDE 103 MEQ/L (98-107); SODIUM (NA) 138 MEQ/L (136-145)
[2016-12-07 07:31] LABS: ALT (GPT) 29 U/L (12-78); ANION GAP 6 MEQ/L (5-15); AST (GOT) 26 U/L (15-37); BICARBONATE 28.7 MEQ/L (21.0-32.0); BLOOD UREA NITROGEN 12 MG/DL (7-18); GLOMERULAR FILTRATION RATE 79 ML/MIN (>89)
[2016-12-07 08:00] VITALS: BP 119/79; PULSE 68; RESP 16; TEMP 96.8; O2SAT 96
[2016-12-07] MEDS: GABAPENTIN 300 MG CAP PO SCH (08:20)
[2016-12-07] MEDS: SODIUM CHLORIDE 0.9% FLUSH 10 ML FLUSH IV FLUSH SCH (08:21)
[2016-12-07] MEDS: CIPROFLOXACIN 500 MG TAB PO SCH (08:21)
[2016-12-07 08:28] LABS: ALKALINE PHOSPHATASE 96 U/L (45-117); TOTAL BILIRUBIN ADULT 0.5 MG/DL (0.2-1.0)
[2016-12-07] MEDS ORDERED: LOPERAMIDE HCL 2 MG CAP PO SCH (09:00)
[2016-12-07 12:00] VITALS: BP 116/74; PULSE 67; RESP 16; TEMP 96.5; O2SAT 95
[2016-12-07] MEDS ORDERED: CIPR-9 PO (16:43)
--- NOTE | 2016-12-07 16:44 | HHI.DCPOC ---
Discharge Care Plan Diagnosis: (1) Urinary tract infection (2) Bacteremia Goals to Promote Your Health * To prevent worsening of your condition and complications * To maintain your health at the optimal level Directions to Meet Your Goals Take your medications as prescribed Follow your dietary instruction Follow activity as directed Keep your appointments as scheduled Take your immunizations and boosters as scheduled If your symptoms worsen call your PCP, if no PCP go to Urgent Care Center or Emergency Room Smoking is Dangerous to Your Health. Avoid second hand smoke Call the 24-hour hour crisis hotline for domestic abuse at Jimenez Tobar MD Dec 07, 2016 16:44
--- NOTE | 2016-12-07 16:46 | HHI.DS ---
Discharge Summary Admission Date Dec 05, 2016 at 19:20 Discharge Date: Dec 07, 2016 Admitting Diagnosis Bacteremia (1) Bacteremia ICD Code: R78.81 - Bacteremia Diagnosis: Principal Status: Acute (2) Urinary tract infection ICD Code: N39.0 - Urinary tract infection, site not specified Diagnosis: Principal Brief History - From Admission Written by Jr Nobles, acting as scribe for Dr. Canales on 12/06/16 at 16:57. 56 year-old male with known history of rectal cancer, hyperlipidemia who presented to the hospital at the request of the ER because of positive blood cultures. Patient states that his symptoms started approximately 3 weeks ago with urinary frequency with decreased urinary output. He thought maybe his prostate so he was planning on arranging an appointment with a urologist. However Friday he started not feeling well with generalized weakness, he started developing chills where he got into a swimming pool and he got out because he was severely cold. He went to bed at 7 PM that day and did not feel well he had fever which he took Tylenol, he had severe headache. Started developing some nausea vomiting between 9 PM and 9:30 that day. Patient got the next day and he did go over and visit his parents but still did not feel well. He did go to the emergency department for evaluation. Patient was evaluated and found to have urinary tract infection was started on Bactrim. Patient went home and took medication approximately 1 dose. Patient was called by the hospital because certainly his blood cultures that were taken in emergency department did become positive with gram-negative rosaura. Patient return the hospital and he has been started on antibiotic to include Zosyn. Patient indicates that he had does have history of bacteremia secondary to urinary tract infection 10-12 years ago.. He does not indicate how he had the source before. Patient does have low-grade fever this time. We'll need to await further cultures for final delineation for the patient CBC/BMP: 12/07/16 0647 12/07/16 0647 Significant Findings Laboratory Tests Test 12/05/16 17:50 12/06/16 05:25 9/16/17 06:47 White Blood Count 11.7 TH/MM3 (4.0-11.0) Red Blood Count 3.69 MIL/MM3 (4.50-5.90) 3.65 MIL/MM3 (4.50-5.90) 3.80 MIL/MM3 (4.50-5.90) Hemoglobin 11.7 GM/DL (13.0-17.0) 11.4 GM/DL (13.0-17.0) 11.9 GM/DL (13.0-17.0) Hematocrit 34.4 % (39.0-51.0) 34.3 % (39.0-51.0) 35.2 % (39.0-51.0) Platelet Count 131 TH/MM3 (150-450) 126 TH/MM3 (150-450) Neutrophils (%) (Auto) 82.8 % (16.0-70.0) 78.6 % (16.0-70.0) 74.3 % (16.0-70.0) Lymphocytes (%) (Auto) 6.8 % (9.0-44.0) Monocytes (%) (Auto) 9.7 % (0.0-8.0) 10.3 % (0.0-8.0) 10.4 % (0.0-8.0) Neutrophils # (Auto) 9.8 TH/MM3 (1.8-7.7) Lymphocytes # (Auto) 0.8 TH/MM3 (1.0-4.8) 0.8 TH/MM3 (1.0-4.8) Monocytes # (Auto) 1.1 TH/MM3 (0-0.9) Activated Partial Thromboplast Time 32.0 SEC (24.3-30.1) Potassium Level 3.3 MEQ/L (3.5-5.1) Estimat Glomerular Filtration Rate 79 ML/MIN (>89) 70 ML/MIN (>89) 79 ML/MIN (>89) Blood Urea Nitrogen 20 MG/DL (7-18) Albumin 2.8 GM/DL (3.4-5.0) Phosphorus Level 2.3 MG/DL (2.5-4.9) Discharge Disposition: Discharge Home Discharge Time: <= 30 minutes Discharge Instructions DIET: Follow Instructions for: Heart Healthy Diet Activities you can perform: Regular-No Restrictions Activities to Avoid: Strenuous Activity Follow up Referrals: PCP Follow-up - 2 Weeks New Medications: Ciprofloxacin (Cipro) 500 Mg Tab 500 MG PO Q12HR for Infection, #62 TAB Continued Medications: Atorvastatin (Atorvastatin) 40 Mg Tab 40 MG PO HS for Cholesterol Management, #30 TAB 0 Refills Gabapentin (Gabapentin) 600 Mg Tab 600 MG PO BID, #90 TAB 0 Refills Loperamide (Imodium A-D) 2 Mg Capsule 1-2 TAB PO Q4HR PRN for DIARRHEA, CAP 0 Refills One capsule after each loose stool. Not to exceed 8 tablets per day. Oxycodone-Acetaminophen (Percocet) 7.5-325 mg Tab 1 TAB PO Q4H PRN for PAIN, #20 TAB 0 Refills Discontinued Medications: Ondansetron Odt (Zofran Odt) 4 Mg Tab 4 MG SL Q6HR PRN for Nausea/Vomiting, #10 TAB 0 Refills Sulfamethoxazole-Trimethoprim (Bactrim DS) 800-160 Mg Tab 1 TAB PO BID for Infection, #20 TAB 0 Refills Jimenez Tobar MD Dec 07, 2016 16:46
== END 2016-12-07 17:45 | disposition home or self-care (01) | DRG 690 ==
LOC: PHED 17:09 → PHEDA 19:20 → PH3A 22:30
PROVIDERS: ADMIT Hospitalist; ATTEND Hospitalist
DX: N39.0 Urinary tract infection, site not specified (principal); R78.81 Bacteremia; D69.6 Thrombocytopenia, unspecified; E78.5 Hyperlipidemia, unspecified; I10 Essential (primary) hypertension; K52.9 Noninfective gastroenteritis and colitis, unspecified; Z85.048 Personal history of other malignant neoplasm of rectum, rectosigmoid junction, and anus; Z87.891 Personal history of nicotine dependence; Z92.21 Personal history of antineoplastic chemotherapy; Z92.3 Personal history of irradiation; E07.9 Disorder of thyroid, unspecified; R51 Headache; R50.9 Fever, unspecified; R11.2 Nausea with vomiting, unspecified; B96.20 Unspecified Escherichia coli [E. coli] as the cause of diseases classified elsewhere
CPT/HCPCS: 80048; 80053; 81001; 83605; 83735; 84100; 85025; 85610; 85730; 87040; 87077; 87086; 87186; 87205; 87804; 96361; 96365; 96375; 96376; J0696; J1170; J2405; J2543; J7030

== ENCOUNTER 2017-05-12 17:06 | Emergency (ER) | payer OTHER, BC ==
[~2017-05-12] VITALS: Ht 182.9 cm; Wt 82.0 kg
[~2017-05-12 17:06] MED LIST changes: -BACT800T5 PO; +CIPR-9 PO; +LOPE-1 PO; -ZOFR4TAB3 SL
[2017-05-12 17:10] VITALS: BP 133/73; PULSE 89; RESP 16; TEMP 98.5; O2SAT 97
--- NOTE | 2017-05-12 17:25 | PD ---
HPI Chief Complaint: Wound/Suture/Staple Re-Check Time Seen by Provider: 17:21 Travel History International Travel<30 days: No Contact w/Intl Traveler<30days: No Traveled to known affect area: No History of Present Illness HPI Patient comes emergency department complaining of pain and swelling to his right lower leg that began 10 days ago. He states he was at work when he fell through a hole of an aluminum deck with his right leg causing the injury. Patient states that he has been icing it which is caused it to decrease in size but has not changed in size over the past several days. Patient reports pain to palpation describes as just a soreness. Denies any radiation of the pain. Patient believes his tetanus shot is up-to-date and does not want another one today. Patient denies any other known injury. Denies any fevers, IV drug use, or drainage. PFSH Past Medical History Arthritis: No Asthma: No Autoimmune Disease: No Heart Rhythm Problems: No Cancer: Yes (Colorectal) Cardiovascular Problems: No High Cholesterol: Yes Chemotherapy: Yes (15 MONTHS AGO.) Chest Pain: No Congestive Heart Failure: No COPD: No Cerebrovascular Accident: No Diabetes: No Diminished Hearing: No Endocrine: No Gastrointestinal Disorders: Yes GERD: No Genitourinary: No Hiatal Hernia: No Hypertension: Yes Immune Disorder: No Kidney Stones: No Musculoskeletal: No Neurologic: No Psychiatric: No Reproductive: No Respiratory: No Migraines: No Radiation Therapy: Yes Renal Failure: No Seizures: No Sickle Cell Disease: No Sleep Apnea: No Thyroid Disease: Yes Ulcer: No Past Surgical History Abdominal Surgery: Yes (COLON) AICD: No Appendectomy: Yes Arteriovenous Shunt: No Cardiac Surgery: No Ear Surgery: No Endocrine Surgery: No Eye Surgery: No Genitourinary Surgery: No Gynecologic Surgery: No Insulin Pump: No Joint Replacement: No Oral Surgery: No Pacemaker: No Thoracic Surgery: No Tonsillectomy: Yes (as a child) Other Surgery: Yes (Colorectal disease) Social History Alcohol Use: No (DENIES) Tobacco Use: No Substance Use: No Allergies-Medications (Allergen,Severity, Reaction): Coded Allergies: No Known Allergies (Verified Adverse Reaction, Unknown, 05/12/17) Reported Meds & Prescriptions Reported Meds & Active Scripts Active Keflex (Cephalexin) 500 Mg Cap 500 Mg PO Q12H 10 Days Cipro (Ciprofloxacin HCl) 500 Mg Tab 500 Mg PO Q12HR Percocet (Oxycodone-Acetaminophen) 7.5-325 mg Tab 1 Tab PO Q4H PRN Reported Imodium A-D (Loperamide HCl) 2 Mg Capsule 1-2 Tab PO Q4HR PRN One capsule after each loose stool. Not to exceed 8 tablets per day. Atorvastatin (Atorvastatin Calcium) 40 Mg Tab 40 Mg PO HS Gabapentin 600 Mg Tab 600 Mg PO BID Review of Systems Except as stated in HPI: all other systems reviewed are Neg Physical Exam Narrative GENERAL: Well-developed, well nourished, in no acute distress, and non-ill appearing. SKIN: Focused skin assessment warm and dry. Patient's fluid collection noted over the lateral anterior aspect of the right lower leg. There is no crepitus or drainage. It is afebrile and not erythematous. There are multiple scabbed over abrasions over the area. Patient reports minimal tenderness to palpation. Findings appear consistent with a seroma. Does not appear infectious. Findings are not consistent with an abscess. HEAD: Atraumatic. Normocephalic. EYES: Pupils equal and round. EOMI. No scleral icterus. No injection or drainage. ENT: No nasal bleeding or discharge. Mucous membranes pink and moist. NECK: Trachea midline. Supple. No nuclear rigidity. RESPIRATORY: No accessory muscle use. No respiratory distress. MUSCULOSKELETAL: No obvious deformities. No clubbing. No cyanosis. No edema. Full range of motion. NEUROLOGICAL: Awake and alert. No obvious cranial nerve deficits. Motor grossly within normal limits. Normal speech. PSYCHIATRIC: Appropriate mood and affect; insight and judgment normal. Data Data Last Documented VS Vital Signs Date Time Temp Pulse Resp B/P (MAP) Pulse Ox O2 Delivery O2 Flow Rate FiO2 05/12/17 17:10 98.5 89 16 133/73 (93) 97 Orders Orders Tibia/Fibula (Ap/Lat) (05/12/17 ) Ed Discharge Order (05/12/17 18:35) [facility] Medical Decision Making Medical Screen Exam Complete: Yes Emergency Medical Condition: Yes Interpretation(s) Last Impressions Tibia/Fibula X-Ray 05/12/17 0000 Signed Impressions: Service Date/Time: Friday, May 12, 2017 17:47 - CONCLUSION: No evidence of recent bony injury. Storm Blake MD Differential Diagnosis Fracture, retained foreign body, seroma, hematoma, abscess, cellulitis, necrotizing fasciitis Narrative Course Patient in no obvious distress upon re-evaluation. All pertinent Radiology result(s) discussed with patient. Patient placed on antibiotics prophylactically. Patient was asked if they wanted to speak to my attending, which the patient did not wish to do at this time. Any questions/concerns in reference to patient diagnosis/condition discussed and clarified prior to patient's discharge. Reinforced sheer importance of close follow up with patient 's primary physician or primary care clinic and/or Workmen's Comp. provider. Instructed patient to return to ED immediately, if symptoms return/worsen. Patient showed understanding of above instructions. Further instructions and recommendations were detailed in discharge paperwork. Patient ambulated without difficulty out of ED at discharge. Diagnosis Primary Impression: Seroma due to trauma Additional Impression: Abrasions of multiple sites Patient Instructions: General Instructions, Seroma (DC) Additional Instructions: Follow-up with your primary care physician and/or workman's comp provider this week for reevaluation. Take all medication as prescribed. Keep wound dry and clean as possible using soap and water. Use Neosporin to promote healing. Return to the emergency department if symptoms get worse. Med/Other Pt SpecificInfo: Prescription(s) given Scripts Cephalexin (Keflex) 500 Mg Cap 500 MG PO Q12H for Infection for 10 Days, #20 CAP 0 Refills Prov: Kyle Bobby MD 05/12/17 Disposition: 01 DISCHARGE HOME Condition: Stable Osvaldo Mckinney May 12, 2017 17:25
--- NOTE | 2017-05-12 18:00 | RADRPT ---
EXAM DATE/TIME: 05/12/2017 17:47 [facility] COMPARISON: No previous studies available for comparison. INDICATIONS : Patient states right leg painful and swollen after scraping on metal in his work truck last week. MEDICAL HISTORY : None. SURGICAL HISTORY : None. ENCOUNTER: Initial ACUITY: 1 week PAIN SCORE: 8/10 LOCATION: Right lateral Tibia FINDINGS: Two view examination of the right tibia demonstrates no evidence of fracture or dislocation. Small w ell corticated ossific densities are seen medial and lateral to the talus suggesting old avulsion inj uries. Ankle mortise is intact. Bony mineralization is mildly decreased. The soft tissue structure s are intact. CONCLUSION: No evidence of recent bony injury. Storm Blake MD on May 12, 2017 at 17:58 Board Certified Radiologist. This report was verified electronically.
[2017-05-12] MEDS ORDERED: CEPH-460 PO (18:30)
== END 2017-05-12 18:54 | disposition home or self-care (01) ==
LOC: PHEFT 17:06
DX: S80.11XA Contusion of right lower leg, initial encounter (principal); S80.811A Abrasion, right lower leg, initial encounter; W17.89XA Other fall from one level to another, initial encounter; Y99.0 Civilian activity done for income or pay; E78.00 Pure hypercholesterolemia, unspecified; I10 Essential (primary) hypertension; Z85.038 Personal history of other malignant neoplasm of large intestine; Z79.899 Other long term (current) drug therapy
CPT/HCPCS: 73590; 99283